=== PATIENT | female | born 1940 | race American Indian/Alaskan Native ===

== ENCOUNTER 2017-02-07 22:02 | Emergency (ER) | payer MEDICARE ==
[2017-02-07] MEDS ORDERED: ADRENALIN ONE (22:15)
[2017-02-07] MEDS ORDERED: CALCIUM CHLORIDE IV ONE (22:15)
[2017-02-07] MEDS ORDERED: XYLOCAINE CARDIAC IV ONE (22:15)
[2017-02-07] MEDS ORDERED: SODIUM BICARBONATE IV ONE (22:15)
--- NOTE | 2017-02-07 22:24 | Emergency Department Report ---
ED CPR HPI - General Chief Complaint: Cardiac Arrest/CPR Stated Complaint: CARDIAC ARREST Time Seen by Provider: 02/07/17 22:19 Source: EMS - History of Present Illness Initial Comments: 76-year-old female history of high blood pressure and back pain, brought by EMS in a cardiac arrest. Per family, initial symptoms started to notice chest pain and shortness of breath, when EMS get to the patient at 21:25, patient with agonal breathing, no pulse, initial rhythm with PEA, ACLS protocol initiated, combitube inserted by EMS. Patient received 3 doses of epinephrine and 1 dose of sodium bicarbonate and CPR continued.When patient arrived to the ER patient rhythm still PEA, Combitube removed immediately and replaced with an ET tube, confirmed with direct visualization and breath sounds on both sides. ACLS protocol continued in the ER, patient continued to be in PEA and then patient went into asystole patient pronounced at 22:16 MD Complaint: stopped breathing Time: 21:25 Place: home Bystander CPR Performed: No AED Applied by Bystander/Administration Manager: No Shock Advised: No Initial Findings in the Field: unresponsive, no respirations, no pulse, PEA Associated Injuries: No Associated Symptoms: chest pain, shortness of breath Treatments Prior to Arrival: other airway device (Combitube) - Related Data Allergies Allergy/AdvReac Type Severity Reaction Status Date / Time No Known Allergies Allergy Verified 02/07/17 22:34 ED Review of Systems ROS: Stated complaint: CARDIAC ARREST Other details as noted in HPI Comment: Unobtainable due to pts medical conditions ED Past Medical Hx - Past Medical History Hx Hypertension: Yes ED Physical Exam - Head Head exam: Present: atraumatic - ENT ENT exam: Present: normal exam - Neck Neck exam: Present: normal inspection - Cardiovascular Cardiovascular Exam: Present: other (PEA) - GI/Abdominal GI/Abdominal exam: Present: soft, distended - Back Exam Back exam: Present: normal inspection - Skin Skin exam: Present: dry, intact, normal color - Intubation Sedative: none Laryngoscope: Valerie Size: 4 ET Tube Size: 7.5 Tube Placement Confirmation: visualized tube passing t, equal breath sounds bilat, no breath sounds over epi Intubation Complications: none Critical Care Time: Yes Critical care time in (mins) excluding proc time.: 55 Critical care attestation.: If time is entered above; I have spent that time in minutes in the direct care of this critically ill patient, excluding procedure time. ED Disposition Clinical Impression: Cardiac arrest Disposition: DC-20 Is pt being admited?: No Condition: Stable Referrals: PRIMARY CARE, [Referring] - 3-5 Days
== END 2017-02-08 02:00 ==
LOC: EDSEX → ED 22:02
DX: I46.9 Cardiac arrest, cause unspecified (principal); I10 Essential (primary) hypertension
CPT/HCPCS: 31500; 92950; 99291; J0171; J2001